=== PATIENT | female | born 1990 | race Caucasian/White ===

== ENCOUNTER 2016-05-15 08:01 | Emergency (ER) | payer BC ==
[2016-05-15 08:21] VITALS: BP 112/76; PULSE 70; RESP 12; TEMP 97.9; O2SAT 97
--- NOTE | 2016-05-15 08:21 | UCPHY ---
H & P Patient Type: Established Time Seen by Provider: 05/15/16 08:14 HPI/ROS: CHIEF COMPLAINT: RIGHT ANKLE PAIN HISTORY OF PRESENT ILLNESS: The patient is a 25-year-old female who comes to the Urgent Care complaining of right ankle pain. She states that she twisted her ankle last night while trying to stand on her Tippy toes. She has had multiple injuries to this ankle past as well as shortening of her tendons by surgery. Most of this previous treatment occurred in OR. She has pain primarily over the lateral malleolus but there is some pain medially as well. No foot pain, no knee pain. She is able to ambulate. She has normal pulses and sensation distally. REVIEW OF SYSTEMS: Constitutional: denies: chills, fever, recent illness, recent injury EENTM: denies: blurred vision, double vision, nose congestion Respiratory: denies: cough, shortness of breath Cardiac: denies: chest pain, irregular heart rate, lightheadedness, palpitations Gastrointestinal/Abdominal: denies: abdominal pain, diarrhea, nausea, vomiting, blood streaked stools Genitourinary: denies: dysuria, frequency, hematuria, pain Musculoskeletal: See HPI Skin: denies: lesions, rash, jaundice, bruising Neurological: denies: headache, numbness, paresthesia, tingling, dizziness, weakness Hematologic/Lymphatic: denies: blood clots, easy bleeding, easy bruising Immunologic/allergic: denies: HIV/AIDS, transplant EXAM: GENERAL: Well-appearing, well-nourished and in no acute distress. HEAD: Atraumatic, normocephalic. EYES: Pupils equal round and reactive to light, extraocular movements intact, sclera anicteric, conjunctiva are normal. ENT: TMs normal, nares patent, oropharynx clear without exudates. Moist mucous membranes. NECK: Normal range of motion, supple without lymphadenopathy or JVD. LUNGS: Breath sounds clear to auscultation bilaterally and equal. No wheezes rales or rhonchi. HEART: Regular rate and rhythm without murmurs, rubs or gallops. ABDOMEN: Soft, nontender, normoactive bowel sounds. No guarding, no rebound. No masses appreciated. BACK: No CVA tenderness, no spinal tenderness, step-offs or deformities EXTREMITIES: Right ankle pain with swelling to the lateral ankle, pain to the lateral malleolus with palpation. Pain to medial ligaments with palpation. Normal sensation distally NEUROLOGICAL: Cranial nerves II through XII grossly intact. Normal speech, normal gait. 5/5 strength, normal movement in all extremities, normal sensation PSYCH: Normal mood, normal affect. SKIN: Warm, dry, normal turgor, no visible rashes or lesions. Source: Patient Exam Limitations: No limitations - Medical/Surgical History Hx Asthma: No Hx Chronic Respiratory Disease: No Hx Diabetes: No Hx Cardiac Disease: No Hx Renal Disease: No Hx Cirrhosis: No Hx Alcoholism: No Hx HIV/AIDS: No Hx Splenectomy or Spleen Trauma: No Other PMH: med hx-depression/anxiety. surg-deviated septum,ankle and benign breast tumor/cyst - Family History Significant Family History: No pertinent family hx - Social History Smoking Status: Never smoked Alcohol Use: Sober Drug Use: None Constitutional: Initial Vital Signs Temperature (C) 36.6 C 05/15/16 08:20 Heart Rate 70 05/15/16 08:20 Respiratory Rate 12 05/15/16 08:20 Blood Pressure 112/76 05/15/16 08:20 O2 Sat (%) 97 05/15/16 08:20 O2 Delivery Mode Room Air Allergies/Adverse Reactions: No Known Allergies Allergy (Verified 05/15/16 08:21) Home Medications: Medication Instructions Recorded Bupropion HCl [Wellbutrin Xl] 11/26/14 Iud 11/26/14 Medical Decision Making - Diagnostics Imaging: X-ray: Right ankle x-ray was obtained. I viewed the images myself on the PACS system. My interpretation of the images is: negative for acute disease . The radiologist interpretation is pending. Procedures: Procedure: Splint placement. A Webster boot splint was applied. After application of the splint I returned and re-examined the patient. The splint was adequately immobilizing the joint and distal to the splint the patient's circulation and sensation was intact. ED Course/Re-evaluation: We discussed the x-ray results. The patient is relieved. I will have her follow up with orthopedist. I will place her in a cm some boot and crutches if necessary and had made her home weight-bearing as tolerated. She understands and agrees with this plan. We discussed Radiology over-read. Differential Diagnosis: Partial list of the Differential diagnosis considered include but were not limited to; ankle fracture, ankle sprain and although unlikely based on the history and physical exam, I also considered foot fracture, knee injury, infection, gout, arthritis. I discussed these differential diagnoses and the plan with the patient as well as the usual and expected course. The patient understands that the diagnosis is provisional and that in medicine we are not always correct and that further workup is often warranted. Usual and customary warnings were given. All of the patient's questions were answered. The patient was instructed to return to the emergency department should the symptoms at all worsen or return, otherwise to followup with the physician as we discussed. Departure - Departure Disposition: Home, Routine, Self-Care Clinical Impression: Ankle sprain Qualifiers: Encounter type: initial encounter Involved ligament of ankle: calcaneofibular ligament Laterality: right Qualified Code(s): S93.411A - Sprain of calcaneofibular ligament of right ankle, initial encounter Condition: Fair Instructions: Ankle Sprain (ED) Referrals: Gillian Saldaña NP [Primary Care Provider] - As per Instructions - PQRS PQRS Measurement: Not applicable
== END 2016-05-15 09:21 | disposition home or self-care (01) ==
LOC: CED 08:01
DX: S93.411A Sprain of calcaneofibular ligament of right ankle, initial encounter (principal); X50.1XXA Overexertion from prolonged static or awkward postures, initial encounter
CPT/HCPCS: 73610-PO; 99214-PO; G0463-PO; L4386

== ENCOUNTER → 2016-10-30 | Outpatient (CLI) | payer BC | LOC: FIMAGING 12:07 | PROVIDERS: ATTEND Obstetrics & Gynecology | DX: Z12.39 Encounter for other screening for malignant neoplasm of breast (principal); N63 Unspecified lump in breast ==

== ENCOUNTER → 2017-11-08 | Outpatient (CLI) | payer BC, OTHER | LOC: FIMAGING 09:05 | PROVIDERS: ATTEND Obstetrics & Gynecology | DX: D24.1 Benign neoplasm of right breast (principal) ==

== ENCOUNTER → 2017-12-12 | Outpatient (CLI) | payer OTHER | LOC: FIMAGING 08:43 | PROVIDERS: ATTEND Internal Medicine | DX: R59.0 Localized enlarged lymph nodes (principal) ==

== ENCOUNTER → 2018-08-11 | Outpatient (CLI) | payer OTHER | LOC: CIMAGING 08:02 ==